=== PATIENT | male | born 1980 | race African-American/Black ===

== ENCOUNTER 2017-03-18 15:44 | Emergency (ER) | payer BC, SELFPAY ==
[2017-03-18] MEDS ORDERED: Acetaminophen 500 MG TAB ONE (16:12)
[2017-03-18] MEDS ORDERED: Ketorolac Tromethamine 30 MG/ML VIAL ONE ×2 (16:23→20:25)
[2017-03-18 16:33] LABS: #Eosinphils 0.1 thou/uL (0.0-0.7); #Monocytes 0.5 thou/uL (0.11-0.59); #Neutrophils 9.4 thou/uL (1.40-6.50); %Basophils 0.1 % (0.0-1.0); %Eosinophils 0.7 % (0.0-10.0); %Lymphocytes 8.9 % (21.0-51.0); %Monocytes 4.2 % (0.0-10.0); Mean Platelet Volume 6.7 fL (7.4-10.4); Red Blood Cell (RBC) Count 4.79 mill/uL (4.70-6.10); White Blood Cell (WBC) Count 10.9 thou/uL (4.8-10.8)
[2017-03-18 16:53] LABS: ALT (SGPT) 37 U/L (8-55); AST (SGOT) 19 U/L (5-34); Alkaline Phosphatase 80 U/L (40-150); Anion Gap 13 mmol/L (10-20); BUN (Urea Nitrogen) 13 mg/dL (8.9-20.6); Bilirubin, Total 1.2 mg/dL (0.2-1.2); Calc. Creatinine Clearance 0 mL/min (70-130); Calcium 10.2 mg/dL (7.8-10.44); Carbon Dioxide 29 mmol/L (22-29); Chloride 99 mmol/L (98-107); Estimated GFR-MDRD 87; Protein, Total 8.6 g/dL (6.0-8.3)
--- NOTE | 2017-03-18 17:00 | RAD ---
PA AND LATERAL CHEST X-RAY: 03/18/17 HISTORY: Cough, history of hypertension. Bodyaches and chills. COMPARISON: None available. FINDINGS: The medial aspect of the left lung base is incompletely imaged. The visualized lungs are otherwise c lear. The cardiac silhouette and pulmonary vasculature are within normal limits. Osseous structures are intact. IMPRESSION: Exclusion of the medial aspect of the left lung base on the frontal projection. There is otherwise n o acute cardiopulmonary process. POS: H
[2017-03-18 17:35] LABS: Bilirubin Negative (Negative); Blood, Urine Negative (Negative); Glucose, Urine (Dipstick) Negative (Negative); Ketone, Urine Negative (Negative); Nitrite Negative (Negative); Protein, Urine (Dipstick) 30 mg/dL (Neg-Trace)
[2017-03-18 17:38] LABS: Bacteria/HPF None Seen HPF (None Seen); Hyaline Casts/LPF 0-3 HYALINE CAST LPF (0-3 Hyaline); Squamous Epithelial 0-3 HPF (0-3); WBC/HPF 0-3 HPF (0-3)
[2017-03-18 20:22] LABS: Troponin I Less than 0.010 ng/mL (< 0.028)
== END 2017-03-18 21:02 | disposition home or self-care (01) ==
LOC: ERS 15:44
DX: J06.9 Acute upper respiratory infection, unspecified (principal); I10 Essential (primary) hypertension; Z79.899 Other long term (current) drug therapy
CPT/HCPCS: 71020; 80053; 81003; 81015; 82553; 84484; 85025; 85379; 87081; 87430; 93005; 96361; 96374; 96376; J1885

== ENCOUNTER 2021-05-28 19:14 | Emergency (ER) | payer OTHER ==
[2021-05-29 13:57] LABS: SARS-CoV-2 PCR by NAA DETECTED (NotDetected)
== END 2021-05-28 20:36 | disposition home or self-care (01) ==
LOC: ERS 19:14
DX: U07.1 COVID-19 (principal); I10 Essential (primary) hypertension
CPT/HCPCS: 99283; U0003; U0005